=== PATIENT | male | born 1975 | race Caucasian/White ===

== ENCOUNTER 2022-11-25 11:50 | Outpatient (CLI) | payer OTHER, SELFPAY ==
--- NOTE | ~2022-11-25 | XR_ITS ---
Lumbosacral Spine: AP and lateral views Clinical History: Pain Findings: The normal lordotic curve is maintained. The vertebral bodies and posterior elements are i ntact. The intervertebral disc spaces are preserved. There is mild to moderate facet arthropathy thr oughout the lumbar spine. The sacroiliac joints are normally outlined. Impression: Mild to moderate facet arthropathy and lumbar spine. Reviewed, dictated and finalized at location M. Impression: Mild to moderate facet arthropathy and lumbar spine.
== END 2022-11-25 11:51 ==
LOC: MICIMG 11:56
PROVIDERS: PCP Chiropractor; Visit Provider Chiropractor
DX: S39.92XA Unspecified injury of lower back, initial encounter (principal); M12.88 Other specific arthropathies, not elsewhere classified, other specified site
CPT/HCPCS: 72100